=== PATIENT | male | born 1955 | race Caucasian/White ===

== ENCOUNTER 2020-04-09 14:35 | Emergency (ER) | payer OTHER ==
[~2020-04-09] VITALS: Ht 180.3 cm; Wt 95.3 kg
[~2020-04-09 14:35] MED LIST: ALPRAZOLAM1 MG PO; AMPHETAMINE SAL30 MG PO; GLIPIZIDE5 MG PO; LISINOPRIL10 MG PO; MELOXICAM7.5 MG PO; METFORMIN HCL500 MG PO; PIOGLITAZONE HC45 MG PO; QUETIAPINE FUM100 MG PO; TAMSULOSIN HCL0.4 MG PO; ULTRAM50 MG PO; VENLAFAXINE HCL75 M1 PO; ZOLPIDEM TARTRA10 MG PO
--- NOTE | 2020-04-09 14:59 | Emergency Department Note ---
History of Present Illnes History of Present Illness Chief Complaint: Skin Rash or Abscess History of Present Illness This is a 64 year old male arrived to the ED with complaints of an abscess over his buttocks . Historian: Patient Arrival Mode: Car Past Medical/Family History Physician Review I have reviewed the patient's past medical and family history. Any updates have been documented here. Past Medical History Recent Fever: No Clinical Suspicion of Infectio: No New/Unexplained Change in Ment: No Past Medical History: Hypertension, Diabetes Other Surgery: LEFT LEG cardiac stent Social History Smoking Cessation: Former smoker Counseling Performed: No Alcohol Use: None Any Illegal Drug Use: No Physically hurt or threatened: No Other Last Tetanus: UNK Any Pre-Existing Lines (PICC,: No Review of Systems Review of Systems Constitutional: Reports no symptoms EENTM: Reports no symptoms Cardiovascular: Reports no symptoms Respiratory: Reports no symptoms Gastrointestinal: Reports no symptoms Genitourinary: Reports no symptoms Musculoskeletal: Reports no symptoms Integumentary: Reports as per HPI Neurological: Reports no symptoms Psychological: Reports no symptoms Endocrine: Reports no symptoms Hematological/Lymphatic: Reports no symptoms Physical Exam Related Data Allergies: Coded Allergies: No Known Allergies (Unverified , 01/25/17) Triage Vital Signs Vital Signs Date Time Temp Pulse Resp B/P (MAP) Pulse Ox O2 Delivery O2 Flow Rate FiO2 04/09/20 14:46 98.2 113 18 174/104 97 Room Air Vital signs reviewed: Yes Physical Exam CONSTITUTIONAL Constitutional: Present well-developed, Present well-nourished HENT HENT: Present normocephalic, Present atraumatic, Present oropharynx clear/moist, Present nose normal HENT L/R: Present left ext ear normal, Present right ext ear normal EYES Eyes: Reports PERRL, Reports conjunctivae normal NECK Neck: Present ROM normal PULMONARY Pulmonary: Present effort normal, Present breath sounds normal CARDIOVASCULAR Cardiovascular: Present regular rhythm, Present heart sounds normal, Present capillary refill normal, Present normal rate GASTROINTESTINAL Abdominal: Present soft, Present nontender, Present bowel sounds normal GENITOURINARY Genitourinary: Present exam deferred SKIN Skin: Present warm, Present other (+2cm abscess, no area of fluctuance) MUSCULOSKELETAL Musculoskeletal: Present ROM normal NEUROLOGICAL Neurological: Present alert, Present oriented x 3, Present no gross motor or sensory deficits PSYCHOLOGICAL Psychological: Present mood/affect normal, Present judgement normal Assessment & Plan Medical Decision Making MDM 64-year-old male arrives to the ED with concerns of an abscess over his buttocks, patient admits to being hypertensive and diabetic and not compliant with medications. Patient refuses lab work imaging and even a fingerstick to assess his blood sugar. Patient states he only wants antibiotics and wishes to be discharged home. Patient is competent medical decision making Assessment & Plan Final Impression: (1) Abscess Depart Disposition: HOME, SELF-CARE Last Vital Signs Date Time Temp Pulse Resp B/P (MAP) Pulse Ox O2 Delivery O2 Flow Rate FiO2 04/09/20 14:46 98.2 113 18 174/104 97 Room Air Home Meds Reported Medications Amphet Asp/Amphet/D-Amphet (AMPHETAMINE SALTS 30 MG TAB) 30 Mg Tablet, 30 MG PO BID 01/26/17 Tramadol Hcl (ULTRAM) 50 Mg Tablet, 50 MG PO Q6H PRN for PAIN, TAB 01/26/17 Lisinopril (LISINOPRIL) 10 Mg Tablet, 20 MG PO DAILY, #30 TAB 01/26/17 Glipizide (GLIPIZIDE) 5 Mg Tablet, 10 MG PO DAILY, TAB 01/26/17 Tamsulosin Hcl (TAMSULOSIN HCL) 0.4 Mg Cap.er.24h, 0.4 MG PO HS 01/26/17 Quetiapine Fumarate (QUETIAPINE FUMARATE) 100 Mg Tablet, 50 MG PO HS, #30 TAB 01/26/17 Meloxicam (MELOXICAM) 7.5 Mg Tablet, 15 MG PO DAILY, #30 TAB 01/26/17 Alprazolam (ALPRAZOLAM) 1 Mg Tablet, 1 MG PO BID PRN for ANXIETY, #30 TAB 01/26/17 Zolpidem Tartrate (ZOLPIDEM TARTRATE) 10 Mg Tablet, 10 MG PO HS PRN for INSOMNIA, #30 TAB 01/26/17 Venlafaxine Hcl (VENLAFAXINE HCL ER) 75 Mg Cap.er.24h, 75 MG PO HS, #30 CAP 01/26/17 Pioglitazone Hcl (PIOGLITAZONE HCL) 45 Mg Tablet, 45 MG PO DAILY, #30 TAB 01/26/17 Metformin Hcl (METFORMIN HCL) 500 Mg Tablet, 1000 MG PO BID, #60 TAB 01/26/17 FERMIN STONE, DO Apr 09, 2020 14:59
--- NOTE | 2020-04-09 15:00 | NUR ---
pt refused blood sugar check
== END 2020-04-09 15:01 | disposition home or self-care (01) ==
LOC: ER 14:50
DX: L02.31 Cutaneous abscess of buttock (principal); I10 Essential (primary) hypertension; E11.9 Type 2 diabetes mellitus without complications
CPT/HCPCS: 99282

== ENCOUNTER 2022-06-09 08:42 | Emergency (ER) | payer SELFPAY ==
[~2022-06-09] VITALS: Ht 177.8 cm; Wt 76.2 kg
[2022-06-09 09:09] LABS: BASOPHILS % 0.5 % (0.0-1.0); EOSINOPHILS % 0.5 % (0.0-6.0); HEMATOCRIT 47.9 % (38.2-49.6); HEMOGLOBIN 15.9 g/dL (14.0-18.0); LYMPHOCYTES # (AUTO) 0.4 (1.0-3.2); MEAN CORPUSCULAR HEMOGLOBIN 29.2 pg (28-32); MEAN CORPUSCULAR HGB CONC 33.2 g/dL (31-35); MEAN CORPUSCULAR VOLUME 88.1 fL (81-99); MONOCYTES # (AUTO) 0.6 (0.2-0.8); MONOCYTES % 9.8 % (4.4-11.3); NEUTROPHILS % 81.9 % (38.7-80.0); PLATELET COUNT 130 x10e3/uL (140-360); RED BLOOD COUNT 5.44 x10e6/uL (4.3-5.7); RED CELL DISTRIBUTION WIDTH 12.7 % (11.7-14.4)
[2022-06-09 09:29] LABS: PROTHROMBIN TIME 14.1 seconds (11.9-14.5)
[2022-06-09 09:30] LABS: PARTIAL THROMBOPLASTIN TIME 32.1 seconds (23.8-35.5)
[2022-06-09 09:38] LABS: ALANINE AMINOTRANSFERASE 11 IU/L (0-55); ALBUMIN 4.3 g/dL (3.5-5.0); ALBUMIN/GLOBULIN RATIO 1.4 (0.8-2.0); ALKALINE PHOSPHATASE 98 IU/L (40-150); ANION GAP 14.9 mmol/L (8-16); BLOOD UREA NITROGEN 14 mg/dL (7-26); BUN/CREATININE RATIO 13 (6-25); CALCIUM 9.7 mg/dL (8.4-10.2); CARBON DIOXIDE 25 mmol/L (22-29); CHLORIDE 101 mmol/L (98-107); CREATINE KINASE 56 IU/L (30-200); CREATININE, SERUM 1.08 mg/dL (0.72-1.25); GLUCOSE 81 mg/dL (74-118); POTASSIUM 3.9 mmol/L (3.5-5.1); SODIUM 137 mmol/L (136-145)
[2022-06-09] MEDS ORDERED: KETOROLAC TROMETHAMINE 30 MG/ML VIAL IV STA (10:41)
[2022-06-09] MEDS ORDERED: METHOCARBAMOL500 MG PO (11:18)
== END 2022-06-09 12:23 | disposition home or self-care (01) ==
LOC: ER 08:47
DX: M62.838 Other muscle spasm (principal); M54.50 Low back pain, unspecified; R06.02 Shortness of breath; I10 Essential (primary) hypertension; E11.9 Type 2 diabetes mellitus without complications; I25.10 Atherosclerotic heart disease of native coronary artery without angina pectoris; F17.210 Nicotine dependence, cigarettes, uncomplicated; Z20.822 Contact with and (suspected) exposure to COVID-19
CPT/HCPCS: 0223U; 36415; 71045; 80053; 82550; 82553; 83880; 84484; 85025; 85610; 85730; 93005; 99284; J1885

== ENCOUNTER 2024-11-09 18:22 | Emergency (ER) | payer MEDICARE ==
[~2024-11-09] VITALS: Ht 177.8 cm; Wt 76.2 kg
[~2024-11-09 18:22] MED LIST changes: +METHOCARBAMOL500 MG PO; +ULTRAM 50MG50 MG PO
[2024-11-09 18:25] VITALS: PULSE 97; RESP 20; O2SAT 97
== END 2024-11-09 19:18 | disposition home or self-care (01) ==
LOC: ER 18:33
DX: F41.9 Anxiety disorder, unspecified (principal); I10 Essential (primary) hypertension; E11.9 Type 2 diabetes mellitus without complications; I25.10 Atherosclerotic heart disease of native coronary artery without angina pectoris; Z95.5 Presence of coronary angioplasty implant and graft
CPT/HCPCS: 99283